=== PATIENT | female | born 1960 | race Caucasian/White ===

== ENCOUNTER → 2020-05-02 14:07 | Outpatient (BNVA) | payer MEDICARE, OTHER, SELFPAY | PROVIDERS: Family Provider Nurse Practitioner Family; Referring Provider Nurse Practitioner Family; Visit Provider Dermatology | DX: L73.8 Other specified follicular disorders (principal); D18.01 Hemangioma of skin and subcutaneous tissue; I78.1 Nevus, non-neoplastic; L72.0 Epidermal cyst; Z85.828 Personal history of other malignant neoplasm of skin | CPT/HCPCS: 99203 ==

== ENCOUNTER 2021-07-19 12:55 | Outpatient (CLI) | payer MEDICARE, OTHER, SELFPAY ==
[2021-07-19 13:29] VITALS: BP 138/81; PULSE 89; RESP 20; TEMP 36.9; O2SAT 92; BMI 29.1
[2021-07-19 14:02] VITALS: BP 134/85; PULSE 87; RESP 18; TEMP 36.6; O2SAT 92
[2021-07-19 14:51] VITALS: BP 133/78; PULSE 84; RESP 18; TEMP 36.9; O2SAT 93
== END 2021-07-19 12:56 | disposition home or self-care (01) ==
LOC: OPS 13:03
PROVIDERS: Visit Provider Family Medicine
DX: U07.1 COVID-19 (principal)
CPT/HCPCS: 96365

== ENCOUNTER → 2021-10-23 11:28 | Outpatient (BNVA) | payer MEDICARE, OTHER, SELFPAY | PROVIDERS: Referring Provider Nurse Practitioner Family; Visit Provider Specialist | DX: R53.82 Chronic fatigue, unspecified (principal) | CPT/HCPCS: 99203; 99204 ==

== ENCOUNTER 2021-11-18 20:00 | Outpatient (CLI) | payer MEDICARE, OTHER, SELFPAY | END 2021-11-18 20:01 | disposition home or self-care (01) | LOC: SLEEP 11-19 05:42 | PROVIDERS: Visit Provider Nurse Practitioner Family | DX: G47.10 Hypersomnia, unspecified (principal); R06.83 Snoring; R53.83 Other fatigue | CPT/HCPCS: 95810 ==

== ENCOUNTER → 2021-11-19 09:23 | Outpatient (BNVA) | payer MEDICARE, OTHER, SELFPAY | PROVIDERS: Visit Provider Internal Medicine Rheumatology | DX: M25.50 Pain in unspecified joint (principal); R53.82 Chronic fatigue, unspecified; M79.7 Fibromyalgia; Z79.899 Other long term (current) drug therapy; E55.9 Vitamin D deficiency, unspecified; M19.90 Unspecified osteoarthritis, unspecified site | CPT/HCPCS: 36415; 72040; 72170; 73130; 73630; 80076; 82306; 82565; 82607; 84439; 84443; 85025; 85651; 86038; 86140; 86200; 86431; 99204 ==

== ENCOUNTER 2021-11-19 12:39 | Outpatient (CLI) | payer MEDICARE, OTHER, SELFPAY ==
--- NOTE | 2021-11-19 12:59 | XR_ITS ---
WS: [email or web address] Exam: XR foot LT min 3V* [id number] Date/Time of Exam: 11/19/2021 1:02 PM Reason For Exam: Z79.899 - Other senior living (current) drug therapy No fracture or dislocation. There is bone spurring along the medial margin of the base of the distal phalanx of the great toe. No soft tissue foreign bodies are seen. XR/XR foot LT min 3V* [id number] IMPRESSION: 1. No fracture or dislocation. Other minor findings as above.
--- NOTE | 2021-11-19 12:59 | XR_ITS ---
WS: [email or web address] Exam: XR hand LT min 3V* [id number] Date/Time of Exam: 11/19/2021 1:02 PM Reason For Exam: Z79.899 - Other detention (current) drug therapy No fracture or dislocation. Mild degenerative changes in the IP joints and MP joints. Several small s ubcortical cysts are noted involving the IP joints. Subcortical cyst formation in the lunate. Soft ti ssues are unremarkable. XR/XR hand LT min 3V* [id number] IMPRESSION: 1. Degenerative changes as above. 2. No fracture or dislocation.
--- NOTE | 2021-11-19 12:59 | XR_ITS ---
WS: [email or web address] Exam: XR hand RT min 3V* [id number] Date/Time of Exam: 11/19/2021 1:02 PM Reason For Exam: Z79.899 - Other detention (current) drug therapy No fracture or dislocation. Mild degenerative changes involving the IP joints. Soft tissues are unrem arkable. XR/XR hand RT min 3V* [id number] IMPRESSION: 1. Mild degenerative changes. No fracture or dislocation.
--- NOTE | 2021-11-19 12:59 | XR_ITS ---
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 No sign of bone destruction. Minimal degenerative changes of the hi ps. SI joints are open. XR/XR pelvis 1-2V* [id number] IMPRESSION: 1. No fracture or bone destruction identified. Other minor findings as above.
--- NOTE | 2021-11-19 12:59 | XR_ITS ---
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 Degenerative disc changes and spondylosis from C2 to C7. Mild facet DJD at all levels. Posterior osteophyte formation at the C5-6 and C6-7 levels might cause some mild spinal canal stenosis The odontoid is intact. Normal paraspinal soft tissues. XR/XR cervical spine 3V* [id number] IMPRESSION: 1. Moderate degenerative changes. See above discussion. 2. No fracture or malalignment.
--- NOTE | 2021-11-19 12:59 | XR_ITS ---
WS: [email or web address] Exam: XR foot RT min 3V* [id number] Date/Time of Exam: 11/19/2021 1:02 PM Reason For Exam: Z79.899 - Other residential (current) drug therapy No acute fracture or dislocation. No soft tissue foreign bodies. There is spurring of the distal phal anx of the great toe. No sign of periarticular demineralization of bone or cortical erosion. XR/XR foot RT min 3V* [id number] IMPRESSION: 1. No fracture or dislocation. Minimal degenerative changes.
[2021-11-19 13:41] LABS: Basophils % 0.6 %; Eosinophils # 0.1 10^3/uL (0.0-0.8); Eosinophils % 1.3 %; Hematocrit 44.9 % (37.0-47.0); Hemoglobin 14.5 g/dL (11.5-15.3); Lymphocytes # 2.3 10^3/uL (0.8-4.8); Lymphocytes % 33.7 %; Mean Corpuscular HGB Conc 32.3 g/dL (30.0-36.0); Mean Corpuscular Hemoglobin 31.3 pg (28.0-34.0); Mean Corpuscular Volume 96.8 fl (81-99); Mean Platelet Volume 9.9 fL (7.4-10.4); Monocytes # 0.6 10^3/uL (0.2-0.9); Monocytes % 9.4 %; Neutrophils # 3.74 10^3/uL (1.8-7.7); Neutrophils % 54.7 %; Nucleated Red Blood Cells % 0 %; Platelet Count 359 10^3/cmm (130-400); Red Blood Count 4.64 10^6/uL (4.1-5.3); White Blood Count 6.8 10^3/uL (4.0-10.0)
[2021-11-19 14:10] LABS: Erythrocyte Sedimentation Rate 7 mm/hr (0-15)
[2021-11-19 14:21] LABS: Alanine Aminotransferase 28 U/L (0-33); Albumin Level 4.4 g/dL (3.5-5.2); Alkaline Phosphatase 118 IU/L (35-105); Aspartate Amino Transferase 23 U/L (0-32); Free T4 Free Thyroxine 0.97 ng/dL (0.82-1.77); Globulin 2.8 g/dL (1.3-4.6); Glomerular Filtration Rate 73.2 mL/min (90-130); Thyroid Stimulating Hormone 4.44 uIU/mL (0.27-4.20); Total Bilirubin 0.2 mg/dL (0.15-1.2); Total Protein 7.2 g/dL (6.6-8.7)
[2021-11-19 14:52] LABS: 25 Hydroxy Vitamin D 6 ng/mL (30-100); Vitamin B12 350 pg/mL (232-1245)
[2021-11-20 14:16] LABS: Cyclic Citrullinated Peptide <16 UNITS
[2021-11-20 15:54] LABS: Anti-Nuclear Antibody Screen NEGATIVE (NEGATIVE)
== END 2021-11-19 12:40 | disposition home or self-care (01) ==
LOC: RAD 12:53
PROVIDERS: PCP Nurse Practitioner Family; Visit Provider Internal Medicine Rheumatology
DX: M19.90 Unspecified osteoarthritis, unspecified site (principal); R53.82 Chronic fatigue, unspecified; Z79.899 Other long term (current) drug therapy
CPT/HCPCS: 36415; 72040; 72170; 73130; 73630; 80076; 82306; 82565; 82607; 84439; 84443; 85025; 85651; 86038; 86140; 86200; 86431

== ENCOUNTER → 2022-01-08 09:16 | Outpatient (BNVA) | payer MEDICARE, OTHER, SELFPAY | PROVIDERS: PCP Nurse Practitioner Family; Visit Provider Internal Medicine Rheumatology | DX: M25.50 Pain in unspecified joint (principal); M79.7 Fibromyalgia; Z79.899 Other long term (current) drug therapy; G47.34 Idiopathic sleep related nonobstructive alveolar hypoventilation; E55.9 Vitamin D deficiency, unspecified; Z86.16 Personal history of COVID-19 | CPT/HCPCS: 99214 ==

== ENCOUNTER 2022-04-25 09:29 | Outpatient (CLI) | payer MEDICARE, OTHER, SELFPAY ==
--- NOTE | 2022-04-25 10:00 | CT_ITS ---
WS: [id number] CT CHEST CT-HIGH RESOLUTION, NONCONTRAST. HISTORY: Interstitial lung disease. Comment abnormal findings ON diagnostic imaging. Technique: High-resolution chest CT is performed in inspiration, expiration, supine and prone wyatt beard. All CT scans at [facility] use at least one of these dose optimization techniques: automated exposure control; mA and/or kV adjustment per patient size (includes targeted exams where dose is mat ched to clinical indication); or iterative reconstruction. DLP: 2334.45 mGy.cm COMPARISON: Chest radiograph 09/17/2021 Findings: Very minimal interstitial thickening persists on inspiration, expiration and prone imaging in the posterior RIGHT lower lobe. There is no honeycombing or bronchiectasis. No mass or nodule. Shlomo ign granuloma RIGHT upper lobe. Volume loss and expiratory imaging. There are no focal areas of air t rapping identified. Normal size pulmonary artery and aorta. The heart is normal size. Small amount of pericardial thicken ing surrounding the heart. No pericardial or pleural effusion. Normal esophagus. Chest wall is negative. Normal upper abdomen. Mild thoracic scoliosis. Curvature to the RIGHT. CT/CT chest wo con [id number] Impression: 1. Very minimal interstitial thickening at the RIGHT lung base. No honeycombin g or traction bronchiectasis. Very early changes of pulmonary fibrosis or focal pneumonitis. 2. No pneumonia or mass. 3. No adenopathy.
== END 2022-04-25 09:30 | disposition home or self-care (01) ==
LOC: RAD 09:29
PROVIDERS: PCP Nurse Practitioner Family; Visit Provider Internal Medicine Rheumatology
DX: R93.89 Abnormal findings on diagnostic imaging of other specified body structures (principal); J98.4 Other disorders of lung
CPT/HCPCS: 71250

== ENCOUNTER → 2022-05-14 14:07 | Outpatient (BNVA) | payer MEDICARE, OTHER, SELFPAY | PROVIDERS: PCP Nurse Practitioner Family; Visit Provider Internal Medicine Rheumatology | DX: M25.50 Pain in unspecified joint (principal); M79.7 Fibromyalgia; Z86.16 Personal history of COVID-19; Z79.1 Long term (current) use of non-steroidal anti-inflammatories (NSAID) | CPT/HCPCS: 99213; 99214 ==

== ENCOUNTER 2022-12-23 12:38 | Emergency (ER) | payer MEDICARE, OTHER, SELFPAY ==
[2022-12-23 12:43] VITALS: BP 164/91; PULSE 80; RESP 18; O2SAT 96; BMI 28.3
[2022-12-23 16:45] LABS: Basophils # 0.1 10^3/uL (0.0-0.1); Basophils % 0.7 %; Eosinophils # 0.1 10^3/uL (0.0-0.8); Eosinophils % 1.7 %; Hematocrit 46.3 % (37.0-47.0); Hemoglobin 14.9 g/dL (11.5-15.3); Lymphocytes # 2.4 10^3/uL (0.8-4.8); Lymphocytes % 33.2 %; Mean Corpuscular HGB Conc 32.2 g/dL (30.0-36.0); Mean Corpuscular Hemoglobin 30.4 pg (28.0-34.0); Mean Corpuscular Volume 94.5 fl (81-99); Mean Platelet Volume 9.7 fL (7.4-10.4); Monocytes # 0.5 10^3/uL (0.2-0.9); Monocytes % 7.1 %; Neutrophils # 4.07 10^3/uL (1.8-7.7); Neutrophils % 56.9 %; Nucleated Red Blood Cells % 0 %; Platelet Count 340 10^3/cmm (130-400); Red Cell Distribution Width 13.3 % (12.1-15.1); White Blood Count 7.2 10^3/uL (4.0-10.0)
--- NOTE | 2022-12-23 17:06 | ED_ITS ---
HPI - Abdominal Pain General: Chief Complaint: Abdominal Pain Stated Complaint: abd pains Time Seen by Provider: 12/23/22 17:05 History of Present Illness: 62-year-old female comes in today for complaints of abdominal pain to the left lower quadrant of abdomen. Patient has had waxing and waning of the abdominal pain for about 1 year. Patient has been started on pantoprazole with minimal relief. Patient also has a history of chronic fatigue syndrome and fibromyalgia. Patient also reports a history of bladder cancer and interstitial cystitis. Patient appears nontoxic. Patient appears in no acute distress. Patient appears in mild to moderate pain. Associated Symptoms: Denies fever(s) Review of Systems Const: Denies: fever(s) ENMT: Denies: throat pain Card: Denies: chest pain Resp: Denies: dyspnea GI: Reports: abdominal pain : Denies: difficulty voiding Neuro: Denies: headache(s) PFSH ED PFSH: Medical History Bladder cancer 2020 pt said clean margins Chronic fatigue syndrome Fibromyalgia History of basal cell carcinoma (BCC) History of hypercholesterolemia History of nonmelanoma skin cancer Hypertension Nocturnal hypoxemia Polyarthralgia Scoliosis Vitamin D deficiency Surgical History H/O removal of cyst H/O thumb surgery bilaterally History of biopsy of bladder History of delivery History of eye surgery Family History Father Melanoma Mother Melanoma Son Melanoma Other CAD (coronary artery disease) Cancer Family history of premature coronary artery disease Hyperlipidemia Hypertension Stroke Denies family history of Rheumatoid arthritis Diabetes Lupus Chronic kidney disease (CKD) Social History Smoking and tobacco status: never smoked Alcohol intake: never Physical Exam Const: COMMON NORMALS: alert HENMT: COMMON NORMALS: normocephalic HEAD & SCALP: normocephalic Neck/C-Spine: COMMON NORMALS: full ROM Resp: COMMON NORMALS: normal respiratory effort and clear to auscultation bilaterally AUSCULTATION: clear to auscultation bilaterally Cardio: COMMON NORMALS: regular rate and regular rhythm RATE: regular rate RHYTHM: regular rhythm GI: COMMON NORMALS: Soft to palpation AUSCULTATION: Yes normoactive bowel sounds PALPATION: Yes Soft to palpation and Yes Tenderness to palpation prese nt (GI) Details: LLQ : COMMON NORMALS: Yes no CVA tenderness BLADDER/KIDNEY EXAM: Yes no CVA tenderness Back/Pelvis: COMMON NORMALS: no CVA tenderness Extremity: COMMON NORMALS: normal to inspection Neuro: SENSORIUM/ORIENTATION: Yes alert Skin: COMMON NORMALS: turgor normal GENERAL SKIN EXAM: turgor normal Course Vital Signs: Vital signs: Vital Signs Pulse Rate 80 12/23/22 12:43 Respiratory Rate 16 12/23/22 17:42 Blood Pressure 164/91 12/23/22 12:43 Pulse Oximetry 96 12/23/22 12:43 Oxygen Delivery Me thod 12/23/22 12:43 MDM - Abdominal Pain Medical Decision Making 62-year-old female comes in today with complaints of abdominal pain. Patient has had waxing and waning abdominal pain over the last year. Patient is waiting to get set up for an appointment for a endoscopy. Patient is scheduled to see primary care tomorrow for further evaluation and consideration of further treatment. Patient came in today due to increased pain over the weekend. Patient appears nontoxic. Abdomen soft normal active bowel sounds left lower quadrant tenderness. Vital signs normal except for some elevation in blood pressure. Differential diagnosis includes but not limited to diverticulitis, colitis, gastritis, malingering. Laboratory values were unremarkable. CT of the abdomen pelvis showed some benign cyst in the liver, and mild degenerative changes in the spine. Patient was given 500 mL of fluid, 4 mg of Zofran, and 4 mg of morphine. Patient had relief of pain and discomfort. Recommend continued appointment with primary care tomorrow for further treatment and evaluation. Lab Data 12/23/22 16:34 12/23/22 16:34 Labs/Radiology: Radiology Impressions Abdomen/Pelvis CT 12/23/22 17:17 IMPRESSION: 1. No acute findings. 2. Tiny hepatic lesions most likely cysts not significantly changed. COMMENTS: Consistent with the [employer]'s Incidental Findings Committee white paper (J Am Tha Radiol 2018): Any incidental renal lesion less than 1 cm or classified as too small to characterize, or any incidental cystic renal lesion characterized as simple-appearing, is likely benign. No follow-up imaging is recommended for these lesions per consensus recommendations based on imaging criteria. Laboratory Results WBC 7.2 10^3/uL (4.0-10.0) 12/23/22 16:34 RBC 4.90 10^6/uL (4.1-5.3) 12/23/22 16:34 Hgb 14.9 g/dL (11.5-15.3) 12/23/22 16:34 Hct 46.3 % (37.0-47.0) 12/23/22 16:34 MCV 94.5 fl (81-99) 12/23/22 16:34 MCH 30.4 pg (28.0-34.0) 12/23/22 16:34 MCHC 32.2 g/dL (30.0-36.0) 12/23/22 16:34 RDW 13.3 % (12.1-15.1) 12/23/22 16:34 Plt Count 340 10^3/cmm (130-400) 12/23/22 16:34 MPV 9.7 fL (7.4-10.4) 12/23/22 16:34 Neut % (Auto) 56.9 % 12/23/22 16:34 Lymph % (Auto) 33.2 % 12/23/22 16:34 Yell % (Auto) 7.1 % 12/23/22 16:34 Eos % (Auto) 1.7 % 12/23/22 16:34 Baso % (Auto) 0.7 % 12/23/22 16:34 Neut # (Auto) 4.07 10^3/uL (1.8-7.7) 12/23/22 16:34 Lymph # (Auto) 2.4 10^3/uL (0.8-4.8) 12/23/22 16:34 Yell # (Auto) 0.5 10^3/uL (0.2-0.9) 12/23/22 16:34 Eos # (Auto) 0.1 10^3/uL (0.0-0.8) 12/23/22 16:34 Baso # (Auto) 0.1 10^3/uL (0.0-0.1) 12/23/22 16:34 Nucleated RBC % (auto) 0 % 12/23/22 16:34 Nucleated RBCs # 0.0 /100WBC 12/23/22 16:34 Sodium 143 mmol/L (136-145) 12/23/22 16:34 Potassium 3.4 mmol/L (3.5-5.1) L 12/23/22 16:34 Chloride 103 mmol/L (98-107) 12/23/22 16:34 Carbon Dioxide 28 mmol/L (22-29) 12/23/22 16:34 Anion Gap 15.4 (5-19) 12/23/22 16:34 BUN 8 mg/dL (8-23) 12/23/22 16:34 Creatinine 0.7 mg/dL (0.5-0.9) 12/23/22 16:34 GFR Calculation 85.1 mL/min (90-130) L 12/23/22 16:34 Glucose 138 mg/dL (65-115) H 12/23/22 16:34 Calculated Osmolality 297 mOsm/kg (285-295) H 12/23/22 16:34 Calcium 9.1 mg/dL (8.5-10.5) 12/23/22 16:34 Total Bilirubin 0.4 mg/dL (0.15-1.2) 12/23/22 16:34 AST 30 U/L (0-32) 12/23/22 16:34 ALT 32 U/L (0-33) 12/23/22 16:34 Alkaline Phosphatase 99 U/L (35-105) 12/23/22 16:34 Total Protein 7.8 g/dL (6.6-8.7) 12/23/22 16:34 Albumin 4.6 g/dL (3.5-5.2) 12/23/22 16:34 Globulin 3.2 g/dL (1.3-4.6) 12/23/22 16:34 Lipase 42 U/L (13-60) 12/23/22 16:34 Urine Color Yellow (Yellow) 12/23/22 17:00 Urine Appearance Clear (CLEAR) 12/23/22 17:00 Urine pH 6 (5-7) 12/23/22 17:00 Ur Specific [place] 1.015 (1.005-1.030) 12/23/22 17:00 Urine Protein Neg (Negative) 12/23/22 17:00 Urine Glucose (UA) Norm (Normal) 12/23/22 17:00 Urine Ketones Negative (Negative) 12/23/22 17:00 Urine Blood Neg (Negative) 12/23/22 17:00 Urine Nitrate Negative (Negative) 12/23/22 17:00 Urine Bilirubin Neg (Negative) 12/23/22 17:00 Urine Urobilinogen Norm mg/dL (Negative) 12/23/22 17:00 Ur Leukocyte Esterase Trace (Negative) H 12/23/22 17:00 Urine RBC None /hpf (0-2) 12/23/22 17:00 Urine WBC 0-4 /hpf (0-5) H 12/23/22 17:00 Ur Squamous Epith Cells 5-10 /hpf (0-5) H 12/23/22 17:00 Amorphous Sediment Not Reportable 12/23/22 17:00 Urine Bacteria Trace /hpf (NONE) 12/23/22 17:00 Urine Mucus Trace /hpf 12/23/22 17:00 Discharge Plan Discharge Patient Disposition: Home Clinical Impression: Abdominal pain Qualifiers: Abdominal location: generalized Qualified Code(s): R10.84 - Generalized abdominal pain Condition: Stable Prescriptions: No Action hydroxyzine pamoate 25 mg capsule 25 mg PO .HS PRN duloxetine [Cymbalta] 60 mg capsule,delayed release(DR/EC) 60 mg PO DAILY duloxetine [Cymbalta] 30 mg capsule,delayed release(DR/EC) 30 mg PO DAILY Zyrtec 10 mg capsule 10 mg PO DAILY olive leaf extract 250 mg capsule PO BID Echinacea and Goldenseal 450 mg capsule PO DAILY amitriptyline 100 mg tablet 100 mg PO .HS gabapentin 300 mg capsule 300 mg PO TID Qty: 90 3RF ibuprofen 200 mg capsule 600 mg PO Q6H progesterone cream as directed prednisone 20 mg tablet See Rx Instructions PO .COMPLEX PRN (Reason: joint pain flare) Qty: 30 1RF Rx Instructions: take 1 tab daily in am for 7 days and call office with report. PRN for arthritis flare PO PRN; cholecalciferol (vitamin D3) 50 mcg (2,000 unit) tablet 2,000 unit PO DAILY Qty: 90 3RF pantoprazole 40 mg tablet,delayed release (DR/EC) See Rx Instructions PO DAILY Qty: 30 3RF Rx Instructions: take in AM 30 minutes before meal PO daily; Discharge Orders: Discharge ED (Routine); Ordered 12/23/22 Ordered By: Ankit Meneses Referrals: Leslye Hill FNP [Primary Care Provider] - Discharge Diet: Usual diet Discharge Activity: Increase activity as tolerated Patient Instructions: Abdominal Pain (ED) Activity Restrictions/Additional Instructions: Keep appointment with primary care tomorrow. Encourage plenty of fluids and activity. Return to ER for new concerns or worsening symptoms such as fever greater than 100.4, uncontrolled pain. Coding Level of Care Code ED Product Manufacturing Professional for Pattie Stevens
--- NOTE | 2022-12-23 17:17 | CTR_ITS ---
PROCEDURE INFORMATION: Exam: CT Abdomen And Pelvis With Contrast Exam date and time: 12/23/2022 6:28 PM Age: 62 years old Clinical indication: Abdominal pain; Generalized; Prior surgery; Surgery date: 6+ months; Surgery type: Bladder; Additional info: Abd pain, HX of bladder cancer TECHNIQUE: Imaging protocol: Computed tomography of the abdomen and pelvis with contrast. Radiation optimization: All CT scans at this facility use at least one of these dose optimization techniques: automated exposure control; mA and/or kV adjustment per patient size (includes targeted exams where dose is matched to clinical indication); or iterative reconstruction. Contrast material: OMNI 350; Contrast volume: 100 ml; Contrast route: INTRAVENOUS (IV); REPORTING DATA: Count of CT and Cardiac NM exams in prior 12 months: This patient has received [address] and 0 known cardiac nuclear medicine studies in the 12 months prior to the current study. COMPARISON: 1. CR XR pelvis 1-2V* [id number] 11/19/2021 1:[address] chest wo con [id number] 04/25/2022 9:45 AM RADIATION DOSE METRICS: Total DLP (mGy-cm): 691.73 FINDINGS: Liver: There are several small hypodensities within the liver measuring up to 6 mm in size, too small to definitively characterize by CT scanning, possibly small benign cysts. Some of these may be seen on the noncontrast CT chest examination of 04/25/2022 and are unchanged. Given the history of malignancy, additional follow-up may be prudent. Gallbladder and bile ducts: Normal. No calcified stones. No ductal dilation. Pancreas: The pancreas is normal. Spleen: The spleen is normal. Adrenal glands: The adrenal glands are normal. Kidneys and ureters: Small benign appearing 6 mm cyst mid right kidney. There is no evidence of hydronephrosis. There is no evidence of renal or ureteral calcifications. Stomach and bowel: There is no evidence of colitis/diverticulitis. Large amount of feces seen throughout the colon could represent constipation. Appendix: A normal appendix is identified. Intraperitoneal space: Unremarkable. No free air. No significant fluid collection. Vasculature: The aorta is normal. Lymph nodes: There is no evidence of lymphadenopathy. Urinary bladder: Unremarkable as visualized. Reproductive: Unremarkable as visualized. Bones/joints: The lumbar spine demonstrates moderate degenerative changes at multiple levels. Soft tissues: Unremarkable. CT/CT abdomen pelvis w con* [id number] IMPRESSION: 1. No acute findings. 2. Tiny hepatic lesions most likely cysts not significantly changed. COMMENTS: Consistent with the [employer]'s Incidental Findings Committee white paper (J Am Tha Radiol 2018): Any incidental renal lesion less than 1 cm or classified as too small to characterize, or any incidental cystic renal lesion characterized as simple-appearing, is likely benign. No follow-up imaging is recommended for these lesions per consensus recommendations based on imaging criteria.
[2022-12-23 17:22] LABS: Alanine Aminotransferase 32 U/L (0-33); Albumin Level 4.6 g/dL (3.5-5.2); Alkaline Phosphatase 99 U/L (35-105); Anion Gap 15.4 (5-19); Aspartate Amino Transferase 30 U/L (0-32); Blood Urea Nitrogen 8 mg/dL (8-23); Calcium 9.1 mg/dL (8.5-10.5); Carbon Dioxide 28 mmol/L (22-29); Chloride 103 mmol/L (98-107); Globulin 3.2 g/dL (1.3-4.6); Glomerular Filtration Rate 85.1 mL/min (90-130); Glucose 138 mg/dL (65-115); Lipase 42 U/L (13-60); Osmolality Calculated 297 mOsm/kg (285-295); Potassium 3.4 mmol/L (3.5-5.1); Sodium 143 mmol/L (136-145); Total Bilirubin 0.4 mg/dL (0.15-1.2); Total Protein 7.8 g/dL (6.6-8.7)
[2022-12-23] MEDS: sodium chloride 0.9% 500 ML 999 ML IV (17:40)
[2022-12-23 17:42] VITALS: RESP 16
[2022-12-23 17:42] LABS: Add Urine Microscopic? YES; Bilirubin Urine Neg (Negative); Blood Urine Neg (Negative); Glucose Urine UA Norm (Normal); Ketones Urine Negative (Negative); Leukocyte Esterase Urine Trace (Negative); Nitrate Urine Negative (Negative); Protein Urine Neg (Negative); Specific Gravity, Urine 1.015 (1.005-1.030); Urine Appearance Clear (CLEAR); Urine Color Yellow (Yellow); Urobilinogen Urine Norm (Negative); pH Urine 6 (5-7)
[2022-12-23] MEDS: morphine 4 mg/mL SDV 1 mL IVP (17:42)
[2022-12-23] MEDS: ondansetron 2 mg/ML SDV 2 mL 4 MG IVP (17:42)
[2022-12-23 17:43] LABS: Add Urine Culture? No; Bacteria Urine TRACE /hpf; Mucus Urine TRACE /hpf; WBC Urine 0-4 /hpf (0-5)
[2022-12-23] MEDS: iohexol 350 mg/mL 500 mL Btl (per mL) IV (18:32)
[2022-12-23 19:32] VITALS: BP 143/89; PULSE 70; RESP 16; TEMP 36.7; O2SAT 96
== END 2022-12-23 19:30 | disposition home or self-care (01) ==
PROVIDERS: Physician Assistant; Emergency Provider Nurse Practitioner Family; PCP Nurse Practitioner Family
DX: R10.84 Generalized abdominal pain (principal); Z85.51 Personal history of malignant neoplasm of bladder; I10 Essential (primary) hypertension
CPT/HCPCS: 36415; 74177; 80053; 81001; 83690; 85025; 96374; 96375; 99285; J2270; J2405; J7040; Q9967

== ENCOUNTER 2023-02-19 12:38 | Outpatient (CLI) | payer MEDICARE, OTHER, SELFPAY ==
--- NOTE | 2023-02-19 13:32 | MM_ITS ---
WS: [email or web address] BILATERAL 3D TOMOSYNTHESIS DIGITAL DIAGNOSTIC MAMMOGRAPHY WITH CAD CLINICAL INFORMATION: BREAST LUMP LT HISTORY: LEFT breast lump COMPARISON: None. TECHNIQUE: Bilateral CC, MLO, and ML views. FINDINGS: Scattered fibroglandular densities bilaterally. Palpable marker upper outer LEFT breast near the 12:0 0 position. Ultrasound described below. RIGHT breast is unremarkable. ULTRASOUND BREAST LEFT TECHNIQUE: Ultrasound left breast focused area of concern. CLINICAL INFORMATION: BREAST LUMP LT FINDINGS: Ultrasound LEFT breast in the area of palpable concern 12:00 position 6cm from nipple. Normal underly ing parenchymal tissue. No cystic or solid lesions. No suspicious lesions to target for biopsy. MM/[place] [id number] IMPRESSION: BI-RADS: 2-Benign FOLLOW UP: 1 Year Follow-up Recommend return to annual screening mammography.
== END 2023-02-19 12:39 | disposition home or self-care (01) ==
LOC: RAD 12:48
PROVIDERS: PCP Nurse Practitioner Family; Visit Provider Nurse Practitioner Family
DX: N63.25 Unspecified lump in the left breast, overlapping quadrants (principal)
CPT/HCPCS: 76642; 77062; G0279